=== PATIENT | male | born 1960 | race Caucasian/White ===

== ENCOUNTER 2023-05-10 07:18 | Outpatient (OUT) | payer OTHER, SELFPAY ==
[2023-05-10 07:48] LABS: Basophils Percent Auto 0.4 % (0.2-2.0); Eosinophils Absolute Auto 0.1 10^3/uL (0.0-0.7); Eosinophils Percent Auto 1.4 % (0.9-7.0); Hematocrit 43.7 % (42.0-54.0); Hemoglobin 14.3 g/dL (14.0-18.0); Immature Granulocytes Abs Auto 0.01 10^3/uL (0.00-0.03); Immature Granulocytes Pct Auto 0.2 % (0.0-0.5); Lymphocytes Absolute Auto 1.7 10^3/uL (1.2-3.8); Lymphocytes Percent Auto 33.4 % (20.5-60.0); Mean Corpuscular HGB Conc 32.7 g/dL (29.9-35.2); Mean Corpuscular Hemoglobin 30.4 pg (25.9-34.0); Monocytes Absolute Auto 0.5 10^3/uL (0.3-0.8); Monocytes Percent Auto 9.2 % (1.7-12.0); Neutrophils Absolute Auto 2.8 10^3/uL (1.4-6.5); Neutrophils Percent Auto 55.4 % (43.0-75.0); Platelet Count 233 10^3/uL (150-450); Red Cell Distribution Width 12.1 % (11.0-15.0); White Blood Count 5.1 10^3/uL (4.0-11.0)
[2023-05-10 08:11] LABS: Alanine Aminotransferase 35 U/L (16-63); Albumin Globulin Ratio 1.1; Albumin Level 3.6 g/dL (3.4-5.0); Alkaline Phosphatase 65 U/L (46-116); Aspartate Amino Transferase 13 U/L (15-37); BUN Creatinine Ratio 18.1; Bilirubin Total 0.5 mg/dL (0.2-1.0); Calcium 8.9 mg/dL (8.5-10.1); Carbon Dioxide 30.1 mmol/L (21.0-32.0); Chloride 104 mmol/L (98-107); Cholesterol 168 mg/dL (<=200); Estimated GFR (African America >60 (>=60); Estimated GFR (Non-African Ame >60 (>=60); Globulin 3.4 g/dL; Glucose 89 mg/dL (74-106); HDL Cholesterol 56 mg/dL (40-60); Potassium 4.1 mmol/L (3.5-5.1); Sodium 141 mmol/L (136-145); Triglycerides 156 mg/dL (<=150); VLDL CHOLESTEROL 31.2 mg/dL
[2023-05-10 09:11] LABS: Prostate Specific Antigen Scrn 2.76 ng/mL (<=4.00)
== END 2023-05-10 07:19 | disposition home or self-care (01) ==
LOC: LAB 07:27
PROVIDERS: PCP Internal Medicine; Visit Provider Internal Medicine
DX: Z00.00 Encounter for general adult medical examination without abnormal findings (principal)
CPT/HCPCS: 36415; 80053; 80061; 85025; G0103

== ENCOUNTER 2025-03-22 07:23 | Outpatient (OUT) | payer OTHER, SELFPAY ==
--- OUTSIDE RECORDS SUMMARY | 2025-03-19 07:19 | XMS_ITS | Continuity of Care Document ---
Author Organization [facility] Address [address] [place] [address] Phone Care Team Providers Care Cardroom Worker Name Role Phone Erasmo Griffin DO Primary Care Provider Erasmo Griffin DO Attending Provider Care Teams Patient Care Team Team Status: Active Member Role/Relationship Status Dates Erasmo Griffin DO Primary Care Provider Active Patient Care Team Team Status: Inactive Member Role/Relationship Status Dates Erasmo Griffin DO Primary Care Provider Active Start: March 19, 2025 End: March 19felix Griffin DOAttending ProviderActiveStart: March 19, 2025 End: March 19, 2025 Chief Complaint and Reason for Visit Chief Complaint Admit Date Wellness March 19, 2025 1 1:15am Reason for Visit Admit Date Hypercholesterolemia March 19, 2025 11:15am Hypertension March 19, 2025 1 1:15am Lumbar spondylosis March 19, 2025 1 1:15am Screening PSA (prostate specific antigen ) March 19, 2025 11:15am Wellness examination March 19, 2025 11:15am Benign paroxysmal positional vertigo of left ear March 19, 2025 11:15am Allergies, Adverse Reactions, Alerts Allergen Type Severity Reaction Last Updated Verified Status No Known Allergies Allergy Unknown March 19, 2025 11:46amYesActive Social History Smoking Status Status Start Date End Date Date of Observa tion Never smoked tobacco (finding) March 19, 2025 12:16pm Observation Status Observation Response Date of Response Legal Sex Male (finding) Sex Assigned At BirthMaleJuly 1960 Family History Relationship Condition Age at Onset Recorded Date/T lori sister Heart disease Unknown brotherHeart diseaseUnknownfatherMalignant neoplasmUnknown Problems Active Problems Problem Diagnosis/Recorded Date Onset Date Stat us Screening PSA (prostate specific antigen) February 7:14am Unknown Active Trigger finger, left middle finger August 30, 2023 12 :59pm Unknown Active Wellness examination March 16, 2025 7:14am Unknown Active Hypercholesterolemia December 21, 2024 7:25am Unknown Active Bilateral carpal tunnel syndrome August 30, 2023 12:5 9pm Unknown Active Hypertension December 21, 2024 7:25am Unknown Acti ve Lumbar spondylosis September 02, 2023 2:57pm Unknown Active Inactive/Resolved Problems Problem Diagnosis/Recorded Date Onset Date Stat us Dizziness July 31, 2024 12:27pm Unknown Res olved Vertigo July 31, 2024 12:27pm Unknown Res olved Medications Medication Status Dose Units Route Directions Qty Days Refills S tart Date Stop Date End Date Reason(s) Instructions Adherence Meloxicam 15 mg tablet Active 0 .ROUTE.SWFHGGL928Qhni 2023 6:55amTAKE 1 TABLET BY MOUTH EVERY DAY FOR 30 DAYSComplies with drug therapyAtorvastatin 20 mg bkunpzQaemkjyztbjm74HBUWBhgoa51 2023 8:43amAugu2024 7:26amhyperlipidemiaLisinopril 20 mg uxxtwdIddodafvsxfh11WLOUFrofpErarnb 2023 12:00amA2023 8:55am Lisinopril 20 mg pcgcemDyetjuevyilq38RRTVHurec23753Kndvjp 2nd, 2024 8:55am April 14, 2024 2:03pmLisinopril 20 mg zuxlxqWtmmvhayboij47PVVZAwqky618 April 14, 2024 2:02pmAugust 2024 7:26amValacyclovir 500 mg tablet Rceljs985WVIYTbzwi119Inefqndi 6th, 2024 1:00amComplies with drug therapy Lisinopril 20 mg tabletActive0.ROUTE.ZVTMYNN085Kwwzbj2024 7:18amTAKE 1 TABLET DAILYComplies with drug therapyAtorvastatin 20 mg tabletActive0.ROUTE .WZVFTPI688Mqmfzp 2024 7:26amTAKE 1 TABLET DAILY FOR HYPERLIPIDEMIAComplies with drug therapyMeloxicam 15 mg BrkbcvXguuymauekvk29HKYLPaknq as needed for PainApril 2022 12:00amJuly 2023 6:55amLisinopril 5 mg tablet DiscontinuedMGApril 2022 12:00amApril 2023 3:00pmLisinopril 5 mg lmoakhKkfjagsbvgaj66ISKDCxrgt 2023 3:00pmAugust 2023 8:49amMeclizine 25 mg sdwelnUsixzs68UGIQYpkwu times daily as needed for yeasyirjw413Pkbkm 2024 12:00amComplies with drug therapyMultivitamin (Multiple Vitamins) Tablet Vmgpgdmwsczu2KLDHIFgdfwCmkdt 2018 1:00amApril 2022 7:21amAtorvastatin 20 mg nhokxkQgxwjpkvotcy77QNOSYgoohLjeyz 2018 1:00amAugust 2023 8:46am hyperlipidemiaDicyclomine 10 mg KonernsCsliit54ASBQUmgzt as needed for [facility]able [facility] 2018 1:00amComplies with drug therapy Immunizations Immunization Event Date Not Given Reason Dose Number [employer] Lot Number Reason(s) Given Vaccine Information Statement (VIS) Detail Administration Location influenza, unspecified formulation March [facility] 2015Tetanus, Diphtheria adult, 5 Lf pres free absAsc[facility] 2016 Vital Signs Vital Reading Result Reference Range Collection Date/Time Height 70 [in_i] March 19, 2025 11:67vwXfkaid33.61 kgAsc[facility] 2024 11:40amBody Vkwegdivwcc78.4 [degF]97.6-99.0[facility] 2024 11:40amHeart Rate86 /osc08-534 March 19, 2025 11:40amRespiratory rate16 /hvr77-46Cadszwx 2024 11:40am Oxygen saturation by Pulse zfzcmvke36 %95-100[facility] 2024 11:40amBP Uluaaddy436 mm[Hg]100-140[facility] 2024 11:40amBP Fhmmjavrs71 mm[Hg]60-100 March 19, 2025 11:40amBMI (Body Mass Index)30.5 kg/r8Udntxra 2024 11:40am Advance Directives Advance Directive Response Recorded Date/ Time Advance Directives No March 19, 2025 12:16pm Insurance Providers Guarantor Nahum Goldsmith Address [address] [place] [address]Lbhwpnb Info.Home Phone: Payer Group Member ID Coverage Type Subscriber Relationship to Subscriber Effective Date Expiration Date MMO self employed Id: [id number] Rupal Id: [id number] [address] [place] [address] Home Phone: Email: [email or web address] Encounters Encounter Location(s) Arrival/Admit Date Discharge/Departure Date Discharge/Departure Disposition Provider(s) Departed Physician/ Provider Office Visit -[facility] March 19, 2025 11:15am March 19, 2025 12:17pm Discharged to home care or self care (routine discharge) Erasmo Griffin , DO Recent Diagnosis Onset Date Admit Date Hypercholesterolemia Unknown February 11:15am Hypertension Unknown March 19 11:15am Lumbar spondylosis Unknown March 19, 2025 11:15am Screening PSA (prostate specific antigen) Unknow n March 19, 2025 11:15am Wellness examination Unknown February 11:15am Benign paroxysmal positional vertigo of left ear Unknown March 19, 2025 11:15am Assessments Diagnosis Onset Date Resolution Status Admit Date Hypercholesterolemia acuteOctober 2024 11:15amHypertensionacuteOctober 2024 11:15amLumbar spondylosisacuteOctober 2024 11:15amScreening PSA (prostate specific antigen)acuteOctober 2024 11:15amWellness examinationacuteOctober 2024 11:15amBenign paroxysmal positional vertigo of left earnoneactiveOctober 2024 11:15am Plan of Treatment Author Erasmo Griffin [facility] HospitalAuthoredOctober 2024 12:11pmI have instructed this patient on a low fat, high fiber diet and exercise. I have discussed the primary and secondary prevention benefits attributed to lowering LDL cholesterol. I have also discussed the medical treatment of elevated cholesterol, which is based on the 10 year ASCVD risk. Continue Atorvastatin without interruption I have instructed this patient to consume a healthy, low-fat, low-salt diet. I have also encouraged them to continue exercise with weight loss to achieve/maintain a BMI < 30. I have instructed this patient on the correct procedure for obtaining home BP measurements:? - rest for 5 minutes w/o talking. - positioned w/ feet on floor and arms supported. - average best 2/3 readings w/ goal < 135/85. Update office w/ home readings in 2 weeks. Continue Lisinopril without interruption I have instructed this patient on the recommended lifestyle changes, which includes a low fat, high fiber diet along with a regular exercise routine. I have also reviewed the recommended age-appropriate preventive testing for this patient. I have also reviewed the recommended vaccines for their age and risk factors. I have recommended yearly PSA testing. I have informed him that the PSA can be elevated w/ cancer, infection and enlarged prostates. I have explained to the patient, that If his PSA is elevated, while there are many causes, referral will be recommended to r/o cancer. He would be referred to Urology, who may recommend an MRI, TRUS/bx or possibly continued monitoring. He is agreeable to this plan of action PSA: 1.96 - 04/2021, 2.07 - 04/2022, 2.76 - 04/2023 I have instructed this patient to avoid bending, twisting or lifting. I have also instructed on use of intermittent heat and ice as needed. They may schedule a massage or gentle manipulation. I instructed them on the safe use of Tylenol, Lidocaine and stretching exercises. I informed them of alternative modes of treatment for severe pain, which may include referral to physical therapy or pain management. Instructed to push fluid and avoid abrupt changes in head position. Instructed on modified mary maneuvers Future Tests Future scheduled test information is unavailable Pending Tests Test Name Ordered Date Scheduled Date Comprehensive Metabolic Panel March 19, 2025 12:11pm Future Visits Future appointment information is unavailable Future Procedures Procedure Name Ordered Date Scheduled Date Complete Blood Count Auto Diff March 19 12:11pm Lipid PanelOct2024 12:11pmPSA Screen (Yearly Only)March 19, 2025 12:11pm Future Medications Future medication information is unavailable Patient Instructions Patient instructions are unavailable
--- OUTSIDE RECORDS SUMMARY | 2025-03-22 07:28 | XMS_ITS | Clinical Summary ---
Author Organization [facility] Address [address] [place] [address] Care Team Providers Care Tankroom Tender Name Role Phone Unavailable Primary Care Provider Unavailabl e Social History Tobacco UseTypesPacks/DayYears UsedDateSmoking Tobacco: Never AssessedSex and Gender InformationValueDate RecordedSex Assigned at BirthNot on fileLegal Sex Male08/01/2022 8:25 PM EDTGender IdentityNot on fileSexual OrientationNot on file Last Filed Vital Signs Vital SignReadingTime TakenCommentsBlood Zgdaekdw566/7308 12:00 PM EDT Pulse--Temperature--Respiratory Rate--Oxygen Saturation--Inhaled Oxygen Concentration--Krsbzg42 kg (194 lb)11/11/2018 12:00 PM OBAJfabdh593.8 cm (5' 10 )11/11/2018 12:00 PM EDTBody Mass Index27.8411/11/2018 12:00 PM EDT Plan of Treatment Not on file Insurance * Guarantor: Nahum GoldsmithAccount TypeRelation to PatientDate of BirthPhone Billing AddressPersonal/TkdrnkNetv39/20/1961 [address] [place] [address]
--- OUTSIDE RECORDS SUMMARY | 2025-03-22 07:28 | XMS_ITS | CCD ---
Author Organization [facility] Care Team Providers Care Extrusion Operator Name Role Phone Timo Adams Unavailable Baljinder Chavez Unavailable DR ERASMO GRIFFIN Admitting Unavailable ENRIQUE, DR CRAWFORD Attending Unavailable ENRIQUE, DR CRAFWORD Primary Care Unavailable ENRIQUE, DR CRAWFORD Consulting Unavailable DO Erasmo Griffin Primary Care Provider MD Baljinder Chavez Attending Provider [phone] Erasmo Griffin Unavailable Erasmo Griffin DO Primary Care Provider Barry Logan MD Emergency Provider Barry Logan Attending Unavailable Barry Logan Admitting Unavailable Erasmo Griffin Primary Care Unavailable Erasmo Griffin DO Primary Care Provider Erasmo Griffin DO Attending Provider [phone] Allergies Allergy ClassificationReported Allergen(s)Allergy TypeDate of OnsetReaction(s) Facility (1 source)patient allergy list reviewed by nurse or physiciaPropensity to adverse eduqtmlub58-24-2634Xltxjqw:[employer] Other Medications Current Medications MedicationDrug Class(es)DatesSig (Normalized)Sig (Original)atorvastatin 20 mg oral tablet (16 sources)HMG-CoA Reductase InhibitorStart: 62-23-8180Ldrlrgqykykg 20 mg tablet Active 0 .ROUTE .COMPLEX 90 December 21, 2024 7:26am TAKE 1 TABLET DAILY FOR HYPERLIPIDEMIA Complies with drug therapyStart: 07-23-2018 End: 09-15-8888magg 1 tablet by mouth once dailyAtorvastatin 20 mg tablet Discontinued 20 MG PO Daily 90 90 3 December 20, 2023 8:43am December 21, 2024 7:26am hyperlipidemiaDiclofenac (10 sources)Nonsteroidal Anti-inflammatory DrugVoltaren 1 % as directed Externally PRN ActiveVoltaren 1 % as directed Externally PRN Activedicyclomine hydrochloride 10 mg oral capsule (8 sources)AnticholinergicStart: 65-67-3666cdtx 1 capsule by mouth once daily as neededDicyclomine 10 mg Capsule Active 10 MG PO Daily as needed for irritable bowel July 23, 2018 1:00am Complies with drug therapyDicyclomine HCl prn Activedoxycycline hyclate 100 mg oral capsule (5 sources)Tetracycline-class Drugtake 1 capsule by mouth every twenty-four hoursDoxycycline Hyclate 100 MG 1 capsule Orally Once a day PRN Activelisinopril 20 mg oral tablet (20 sources)Angiotensin Converting Enzyme InhibitorStart: 02-13-6150Sayokgxbzl 20 mg tablet Active 0 .ROUTE .COMPLEX 90 December 21, 2024 7:18am TAKE 1 TABLET DAILY Complies with drug therapyStart: 12-20-2023 End: 83-03-7618pecj 1 tablet by mouth once dailyLisinopril 20 mg tablet Discontinued 20 MG PO Daily 7 7 0 April 14, 2024 2:02pm December 21, 2024 7:26amStart: 09-02-2023 End: 38-25-0344Ibwnehecru 5 mg tablet Discontinued 20 MG PO September 02, 2023 3:00pm December 20, 2023 8:49amStart: 08-31-2022 End: 99-50-7751Cecuteuiya 5 mg tablet Discontinued MG August 31, 2022 12:00am September 02, 2023 3:00pmStart: 79-59-2483Thjavzknee Active MG TABLET August 31, 2022 12:00amtake 1 tablet by mouth every twenty-four hoursLisinopril 20 MG 1 tablet Orally Once a day for 90 days Activetake 1 tablet by mouth every twenty- four hoursLisinopril 30 MG 1 tablet Orally Once a day ActiveLisinopril 10 MG TAKE 1 TABLET DAILY Orally Once a day Activemeclizine hydrochloride 25 mg oral tablet (2 sources)AntiemeticStart: 53-36-4532clwf 1 tablet by mouth three times daily as needed for dizzinessMeclizine 25 mg tablet Active 25 MG PO Three times daily as needed for dizziness 30 0 July 31, 2024 12:00am Complies with drug therapy meloxicam 15 mg oral tablet (15 sources)Nonsteroidal Anti-inflammatory DrugStart: 08-20-5226jjji 1 tablet by mouth once dailyMeloxicam 15 mg tablet Active 0 .ROUTE .COMPLEX 30 December 09, 2023 6:55am TAKE 1 TABLET BY MOUTH EVERY DAY FOR 30 DAYS Complies with drug therapyStart: 09-15-2021 End: 87-10-3830qphn 1 tablet by mouth once daily as needed for painMeloxicam 15 mg Tablet Discontinued 15 MG PO Daily as needed for Pain August 31, 2022 12:00am 2023 6:55ammethylPREDNISolone 4 mg oral tablet (2 sources)CorticosteroidStart: 20-02-8135Tmwpll (Toñito) 4 MG as directed Orally as directed for 5 days Jul, ActivevalACYclovir 500 mg oral tablet (8 sources)Herpesvirus Nucleoside Analog DNA Polymerase Inhibitor, Herpes Simplex Virus Nucleoside Analog DNA Polymerase Inhibitor, Herpes Zoster Virus Nucleoside Analog DNA Polymerase InhibitorStart: 21-12-6233srhg 1 tablet by mouth once dailyValacyclovir 500 mg tablet Active 500 MG PO Daily 90 April 24, 2024 1:00am Complies with drugtherapyvalACYclovir HCl 500 mg TAKE 1 TABLET DAILY Orally Once a day for 90 days prn Active Completed/Discontinued Medications MedicationDrug Class(es)DatesSig (Normalized)Sig (Original)Multivitamin (Multiple Vitamins) Tablet (3 sources)Start: 07-23-2018 End: 02-24-5858yqts 1 tablet by mouth once dailyMultivitamin (Multiple Vitamins) Tablet Discontinued 1 TAB PO Daily July 23, 2018 1:00am August 31, 2022 7:21amtriamcinolone acetonide 40 mg/ml injectable suspension (20 sources)CorticosteroidStart: 50-11-8334Shetunc-40 Jul, 20 mgStart: 95-02-8364Kgmexsu-40 Jul, 40 mgStart: 89-17-1265Zsahilu -40 mg Apr, 20 mgStart: 99-24-7637Riuuidy -40 mg Jan, 20 mg Problems Active Problems Problem ClassificationProblemDateDocumented DateEpisodic/ChronicConditions associated with dizziness or vertigo (6 sources)Dizziness; Translations: [Dizziness and giddiness]Onset: 07-31-2024 52-61-1992JnwbqndvCnvdnjncp of lipid metabolism (9 sources)Familial hypercholesterolemia; Translations: [Familial hypercholesterolemia]Onset: 88-43-6165DeucuqhTvpasujkn hypertension (9 sources)Essential hypertension; Translations: [Essential (primary) hypertension]ChronicHyperplasia of prostate (2 sources)Benign prostatic hypertrophy with outflow obstruction; Translations: [Hypertrophy (benign) of prostate with urinary obstruction and other lower urinary tract symptoms [LUTS]]Onset: 47-06-2118RqhtbmxHobvgshjqnpdnk (1 source)Degenerative joint disease of hand; Translations: [Osteoarthrosis, unspecified whether generalized or localized, hand]ChronicOther connective tissue disease (3 sources)Bicipital tendinitis, right shoulderOnset: 09-15-2021 Resolved: 11-32-2862WbwgiqqfOlvzr connective tissue disease (3 sources)Trigger finger, left middle fingerOnset: 09-15-2021 Resolved: 84-19-5795ZpabariqAlhhd connective tissue disease (2 sources)Acquired trigger finger; Translations: [Trigger finger, unspecified finger]EpisodicOther connective tissue disease (2 sources)Triggering of digit; Translations: [Trigger finger, left middle finger]57-30-4339AvitooocPhflu nervous system disorders (10 sources)Carpal tunnel syndrome of right wrist; Translations: [Carpal tunnel syndrome, right upper limb]ChronicOther nervous system disorders (10 sources)Carpal tunnel syndrome of left wrist; Translations: [Carpal tunnel syndrome, left upper limb]ChronicOther nervous system disorders (2 sources)Carpal tunnel syndrome, left upper limbChronicOther nervous system disorders (2 sources)Carpal tunnel syndrome, right upper limbChronicOther nervous system disorders (2 sources)Carpal tunnel syndrome; Translations: [Carpal tunnel syndrome, right upper limb]06-36-5338UlfyegxYcvue nervous system disorders (1 source)Bilateral carpal tunnel syndrome; Translations: [Carpal tunnel syndrome, bilateral upper limbs]55-44-0344TeldnykGyfei non-traumatic joint disorders (3 sources)Pain in right shoulderOnset: 09-15-2021 Resolved: 61-47-8977ErxlvdhtXylau non-traumatic joint disorders (1 source)Pain in right hip joint; Translations: [Pain in right hip]Episodic Other nutritional; endocrine; and metabolic disorders (1 source)Obesity; Translations: [Obesity, unspecified]Onset: 65-54-1744Asydzse Other nutritional; endocrine; and metabolic disorders (1 source)OverweightEpisodicOther screening for suspected conditions (not mental disorders or infectious disease) (5 sources)Encounter for screening for malignant neoplasm of prostate; Translations: [Encounter for screening for diseases of the blood and blood- forming organs and certain disorders involving the immune mechanism]Onset: 50-54-1118GpvhsskmUlquzqqe codes; unclassified (1 source)Family history of ischemic heart disease; Translations: [Family history of ischemic heart disease and other diseases of the circulatory system] EpisodicSpondylosis; intervertebral disc disorders; other back problems (7 sources)Lumbar spondylosis; Translations: [Spondylosis without myelopathy or radiculopathy, lumbar region]ChronicSpondylosis; intervertebral disc disorders; other back problems (1 source)Low back pain; Translations: [Low back pain, unspecified]Episodic Sprains and strains (3 sources)Sprain of shoulder and upper arm; Translations: [Strain of unspecified muscle, fascia and tendon atshoulder and upper arm level, right arm, initial encounter]Onset: 44-07-5180HvkfhtfySvebvnhoimks (1 source)Long-term current use of drug therapy; Translations: [Long-term (current) use of other medications]Onset: 30-79-6663Natvr infection (1 source)Herpesviral vesicular dermatitis; Translations: [Herpesviral vesicular dermatitis]Episodic Past or Other Problems Problem ClassificationProblemDateDocumented DateEpisodic/ChronicJoint disorders and dislocations; trauma-related (1 source)Dislocations, sprains and strains involving multiple regions of lower limb(s); Translations: [Sprain and strain of unspecified site of knee and leg] Onset: 71-89-7148DqetjkpoAcyvf non-traumatic joint disorders (1 source)Arthralgia of the pelvic region and thigh; Translations: [Pain in joint, pelvic region and thigh]Onset: 15-40-1641ZpucwemzGujeu nutritional; endocrine; and metabolic disorders (1 source)Overweight; Translations: [Overweight]Onset: 32-23-0193Mpzklyff Results Test NameValueInterpretationReference RangeFacilityAlanine aminotransferase [Enzymatic activity/volume] in Serum or PlasmaOrdered By: Barry Logan on 69-07-6717RQN [Catalytic activity/Vol]Alanine aminotransferase [Enzymatic activity/volume] in Serum or Plasma7-52[facility] HospitalAlbumin [Mass/volume] in Serum or Plasma by Bromocresol green (BCG) dye binding metho Ordered By: Barry Logan on 91-51-0014Xgqzoor BCG dye [Mass/Vol]Albumin [Mass/volume] in Serum or Plasma by Bromocresol green (BCG) dye binding metho 3.5-5.7FKettering Health Washington TownshipAlkaline phosphatase [Enzymatic activity/volume] in Serum or PlasmaOrdered By: Barry Logan on 41-79-2510GXA [Catalytic activity/Vol]Alkaline phosphatase [Enzymatic activity/volume] in Serum or Ojbidw60-688GwjtdqzruTrihealth Bethesda Butler HospitalAspartate aminotransferase [Enzymatic activity/volume] in Serum or PlasmaOrdered By: Barry Logan on 02-17-0444HIX [Catalytic activity/Vol]Aspartate aminotransferase [Enzymatic activity/volume] in Serum or Qqqqqr38-70PicbhkgwuTrihealth Bethesda Butler Hospital Basophils Auto (Bld) [#/Vol]Ordered By: Barry Logan on 54-12-2278Otgpdwvip (Bld) [#/Vol]Automated basophil count0.0-0.2FKettering Health Washington Township Basophils/100 WBC Auto (Bld)Ordered By: Barry Logan on 15-79-6426Yamijkmcn/100 WBC (Bld)Automated basophil %.[facility] Butler HospitalBilirubin.total [Mass/volume] in Serum or PlasmaOrdered By: Barry Logan on 04-87-5423Xfzhmuchs [Mass/Vol]Bilirubin.total [Mass/volume] in Serum or Plasma0.3-1.0[facility] Butler HospitalCT head/brain wo conon 51-74-6732OJ head/brain wo con [facility] [place] [address] CT Scan Report Signed Patient: Nahum Goldsmith MR#: [id number] 631 : 1960 Acct:[id number] Age/Sex: 63 / M ADM Date: 07/31/24 Loc: ER Room: Type: [facility] ER Attending Dr: Copies to: Barry Logan MD Ordering Provider: Barry Logan MD Date of Service: 07/31/24 CT/CT head/brain wo con: lightheadedness/dizziness CT BRAIN WITHOUT CONTRAST: CLINICAL HISTORY: Dizziness for 4 days. COMPARISON: None TECHNIQUE: Contiguous axial unenhanced images were obtained through the brain. This CT exam was performed using one or more following dose reduction techniques: Automated exposure control, adjustment of the mA and/or kV according to patient size, or use of iterative reconstruction technique. FINDINGS: There is no evidence of midline shift, intra or extra-axial fluid collection, hemorrhage or CT evidence of stroke. Posterior fossa appears unremarkable. Visualized intraorbital contents demonstrate no acute findings. Visualized paranasal sinuses are clear. The surrounding soft tissues are normal. CT/CT head/brain wo con IMPRESSION: NO ACUTE INTRACRANIAL ABNORMALITY. Impression dictated by: Jerome Camacho Jr., D.ORosario07/31/2024 12:15 PM Dictation Location: [place] [address] Transcribed By: [facility] 07/31/24 121 Dictated By: Jerome Camacho Jr, DO 07/31/24 121 Signed By: 07/31/24 1215NoBetsy Johnson Regional Hospital Physician GroupCalcium [Mass/volume] in Serum or PlasmaOrdered By: Barry Logan on 92-96-8338Qxvgpvh [Mass/Vol]Calcium [Mass/volume] in Serum or Plasma8.6-10.3FKettering Health Washington TownshipCarbon dioxide, total [Moles/volume] in Serum or PlasmaOrdered By: Barry Logan on 34-23-2292VN7 [Moles/Vol]Carbon dioxide, total [Moles/volume] in Serum or Plasma 21.0-31.0[facility] HospitalChloride [Moles/volume] in Serum or PlasmaOrdered By: Barry Logan on 01-65-7711Snrluryl [Moles/Vol]Chloride [Moles/volume] in Serum or Mjbcps23-157MeoegzxwxTrihealth Bethesda Butler HospitalComplete Blood Count Auto Diffon 66-00-4728Mmqswkllo (Bld) [#/Vol]0.0 10*3/uLNormal 0.0-0.2The [facility] Physician GroupComment on above:Result Comment: PERFORMED BY: [place] [address] PATHOLOGIST [employer] ASIYA GOODSON M.D.Performed By: #### CMP, CK, HS TROP, CBC #### [place] [address] USABasophils/100 WBC (Bld)0.3 %Normal.The [facility] Physician GroupComment on above:Performed By: #### CMP, CK, HS TROP, CBC #### [place] [address] USAEosinophils (Bld) [#/Vol]0.0 10*3/uLNormal0.0-0.45The [facility] Physician GroupComment on above:Performed By: #### CMP, CK, HS TROP, CBC #### [place] [address] USAEosinophils/100 WBC (Bld)0.1 %Normal.The [facility] Physician GroupComment on above:Performed By: #### CMP, CK, HS TROP, CBC #### [place] [address] USAErythrocyte distribution width (RBC) [Ratio]13.4 %Normal 12.0-14.8The [facility] Physician GroupComment on above:Performed By: #### CMP, CK, HS TROP, CBC #### [place] [address] USAHematocrit (Bld) [Volume fraction]42.2 %Uskkjj74.8-50.0The [facility] Physician GroupComment on above:Performed By: #### CMP, CK, HS TROP, CBC #### [place] [address] USAHemoglobin (Bld) [Mass/Vol]14.4 g/rAJvjfra13.0-17.0The [facility] Physician GroupComment on above:Performed By: #### CMP, CK, HS TROP, CBC #### [place] [address] USALymphocytes (Bld) [#/Vol]0.9 10*3/uLLow1.00-4.8The [facility] Physician GroupComment on above:Performed By: #### CMP, CK, HS TROP, CBC #### [place] [address] USALymphocytes/100 WBC (Bld)10.4 %Normal.The [facility] Physician GroupComment on above:Performed By: #### CMP, CK, HS TROP, CBC #### [address] (RBC) [Entitic mass]30.8 omCjylhj12.5-35.2The [facility] Physician GroupComment on above:Performed By: #### CMP, CK, HS TROP, CBC #### [address] (RBC) [Entitic vol]90.5 aQImdlll78.5-101The [facility] Physician GroupComment on above:Performed By: #### CMP, CK, HS TROP, CBC #### [place] [address] USAMean Corpuscular HGB Conc34.0 g/vKZcayol24.5-35.6The [facility] Physician GroupComment on above:Performed By: #### CMP, CK, HS TROP, CBC #### [place] [address] USAMonocytes (Bld) [#/Vol]0.5 10*3/uLNormal0.0-0.8The [facility] Physician GroupComment on above:Performed By: #### CMP, CK, HS TROP, CBC #### [place] [address] USAMonocytes/100 WBC (Bld)19.06 %Normal0.00-20.00The [facility] Physician GroupComment on above:Performed By: #### CMP, CK, HS TROP, CBC #### [place] [address] USAMonocytes/100 WBC (Bld)5.4 %Normal.The [facility] Physician GroupComment on above:Performed By: #### CMP, CK, HS TROP, CBC #### [facility] [address] [place] [address] USANeutrophils (Bld) [#/Vol]7.1 10*3/uLNormal1.8-7.7The [facility] Physician GroupComment on above:Performed By: #### CMP, CK, HS TROP, CBC #### [facility] [address] [place] [address] USANeutrophils/100 WBC (Bld)83.8 %Normal.The [facility] Physician GroupComment on above:Performed By: #### CMP, CK, HS TROP, CBC #### [facility] [address] [place] [address] USANRBC%0.0 /100{WBC}Normal0-0.5The [facility] Physician Group Comment on above:Performed By: #### CMP, CK, HS TROP, CBC #### [facility] [address] [place] [address] USAPlatelet mean volume (Bld) [Entitic vol]7.9 fLNormal 6.6-10.1The [facility] Physician GroupComment on above:Performed By: #### CMP, CK, HS TROP, CBC #### [place] [address] USAPlatelets (Bld) [#/Vol]229 10*3/nKXbrkqj893-209Bmq [facility] Physician GroupComment on above:Performed By: #### CMP, CK, HS TROP, CBC #### [facility] [address] [place] [address] USARBC (Bld) [#/Vol]4.66 10*6/uLNormal3.90-5.60The [facility] Physician GroupComment on above:Performed By: #### CMP, CK, HS TROP, CBC #### [facility] [address] [place] [address] USAWBC (Bld) [#/Vol]8.5 10*3/uLNormal4.1-10.5The [facility] Physician GroupComment on above:Performed By: #### CMP, CK, HS TROP, CBC #### [facility] [address] [place] [address] USAComprehensive Metabolic Panelon 02-80-9543Tgfzfcc [Mass/Vol]4.4 g/dLNormal3.5-5.7The [facility] Physician GroupComment on above: Performed By: #### CMP, CK, HS TROP, CBC #### [facility] [address] [place] [address] USAAlbumin/Globulin [Mass ratio]1.6 {ratio}NormalThe [facility] Physician GroupComment on above:Performed By: #### CMP, CK, HS TROP, CBC #### [place] [address] USAALP [Catalytic activity/Vol]62 U/QWbkfki28-658Cuw [facility] Physician GroupComment on above:Performed By: #### CMP, CK, HS TROP, CBC #### [place] [address] USAALT [Catalytic activity/Vol]25 U/LNormal7-52The [facility] Physician GroupComment on above:Performed By: #### CMP, CK, HS TROP, CBC #### [place] [address] USAAnion gap [Moles/Vol]10.2 mmol/LNormal6.0-15.0The [facility] Physician GroupComment on above:Performed By: #### CMP, CK, HS TROP, CBC #### [place] [address] USAAST [Catalytic activity/Vol]19 U/TGcqpup17-29Gtb [facility] Physician GroupComment on above:Performed By: #### CMP, CK, HS TROP, CBC #### [place] [address] USABilirubin [Mass/Vol]0.8 mg/dLNormal0.3-1.0The [facility] Physician GroupComment on above:Performed By: #### CMP, CK, HS TROP, CBC #### [place] [address] USACalcium [Mass/Vol]9.0 mg/dLNormal8.6-10.3The [facility] Physician GroupComment on above:Performed By: #### CMP, CK, HS TROP, CBC #### [facility] [address] [place] [address] USAChloride [Moles/Vol]104 mmol/OSxrpce00-740Zqs [facility] Physician GroupComment on above:Performed By: #### CMP, CK, HS TROP, CBC #### [facility] [address] [place] [address] USACO2 [Moles/Vol]26.2 mmol/CIivtsy37.0-31.0The [facility] Physician GroupComment on above:Performed By: #### CMP, CK, HS TROP, CBC #### [place] [address] USACreatinine [Mass/Vol]0.97 mg/dLNormal0.70-1.30The [facility] Physician GroupComment on above:Performed By: #### CMP, CK, HS TROP, CBC #### [place] [address] USACreatinine Clr Calc Imamikvt81.76NormKindred Hospital Bay Area-St. Petersburg Physician GroupComment on above:Result Comment: PERFORMED BY: [place] [address] PATHOLOGIST [employer] ASIYA GOODSON M.D.Performed By: #### CMP, CK, HS TROP, CBC #### [place] [address] USAGFR/1.73 sq M.predicted MDRD (S/P/Bld) [Vol rate/Area] mL/min/{1.73_m2}NormalThe [facility] Physician GroupComment on above:Performed By: #### CMP, CK, HS TROP, CBC #### [place] [address] USAGlobulin (S) [Mass/Vol]2.7 g/dLNoBetsy Johnson Regional Hospital Physician GroupComment on above:Performed By: #### CMP, CK, HS TROP, CBC #### [facility] [address] [place] [address] USAGlucose [Mass/Vol]102 mg/wKAkrh44-884Ida [facility] Physician GroupComment on above:Result Comment: Random Glucose Reference Range is dependent on time and content of last meal. Glucose of more than 200 mg/dL in a nonstressed, ambulatory subject supports the diagnosis of Diabetes Mellitus. ADA recommended reference rangePerformed By: #### CMP, CK, HS TROP, CBC #### [facility] [address] [place] [address] USAPotassium [Moles/Vol]4.4 mmol/LNormal3.5-5.1The [facility] Physician GroupComment on above:Performed By: #### CMP, CK, HS TROP, CBC #### [facility] [address] [place] [address] USAProtein [Mass/Vol]7.1 g/dLNormal6.4-8.9The [facility] Physician GroupComment on above:Performed By: #### CMP, CK, HS TROP, CBC #### [facility] [address] [place] [address] USASodium [Moles/Vol]136 mmol/GAowftv849-627Vsw [facility] Physician GroupComment on above:Performed By: #### CMP, CK, HS TROP, CBC #### [facility] [address] [place] [address] USAUrea nitrogen [Mass/Vol]19 mg/dLNormal7-25The [facility] Physician GroupComment on above:Performed By: #### CMP, CK, HS TROP, CBC #### [facility] [address] [place] [id number] USACreatine Kinaseon 82-61-5539UK [Catalytic activity/Vol]190 U/ZPbcymf41-497Zpl [facility] Physician GroupComment on above:Performed By: #### CMP, CK, HS TROP, CBC #### [facility] [address] [place] [address] USACreatine kinase [Enzymatic activity/volume] in Serum or PlasmaOrdered By: Barry Logan on 70-52-9457KH [Catalytic activity/Vol]Creatine kinase [Enzymatic activity/volume] in Serum or Fexbvd33-441FludidywrTrihealth Bethesda Butler HospitalCreatinine [Mass/volume] in Serum or PlasmaOrdered By: Barry Logan on 90-24-8387Sfohmdajae [Mass/Vol]Creatinine [Mass/volume] in Serum or Plasma 0.70-1.30[facility] Butler HospitalECG 12 lead ECGon 61-80-7521MHW 12 lead ECGCOMMUNITY [facility] [place] [address] Electrocardiograph Report Signed Patient: Nahum Goldsmith MR#: [id number] 631 : 1960 Acct:[id number] Age/Sex: 63 / M ADM Date: 07/31/24 Loc: ER Room: Type: [facility] ER Attending Dr: Ordering Provider: Barry Logan MD Date of Service: 07/31/24 ECG/ECG 12 lead ECG: Dizziness Copies to: Test Reason : Blood Pressure : 129/87 mmHG Vent. Rate : 76 BPM Atrial Rate : 76 BPM P-R Int : 138 ms QRS Dur : 88 ms QT Int : 378 ms P-R-T Axes : 74 74 30 degrees QTcB Int : 425 ms Sinus rhythm with fusion complexes Otherwise normal ECG When compared with ECG of 23-Jul-2018 07:15, fusion complexes are now present Confirmed by BARRY LOGAN MD ([id number]) on 07/31/2024 7:13:13 PM Referred By: Electronically Signed By: BARRY LOGAN MD Transcribed By: MUS Signed By Barry Logan MD 07/31/24 [facility] Physician GroupEosinophils Auto (Bld) [#/Vol]Ordered By: Barry Logan on 63-54-6052Xsnluqnlvoy (Bld) [#/Vol]Automated eosinophil count 0.0-0.45[facility] Butler HospitalEosinophils/100 WBC Auto (Bld)Ordered By: Barry Logan on 25-21-5132Bnypgzakiix/100 WBC (Bld)Automated eosinophil %. [facility] Butler HospitalErythrocyte distribution width Auto (RBC) [Ratio]Ordered By: Barry Logan on 47-23-1338Hgxfjxaklvr distribution width (RBC) [Ratio]Erythrocyte distribution width [Ratio] by Automated count12.0-14.8 [facility] Butler HospitalGlobulin Calc (S) [Mass/Vol]Ordered By: Barry Logan on 30-33-5893Oigwaiiy (S) [Mass/Vol]Serum globulin measurement by calculation (mass/volume)[facility] HospitalGlucose [Mass/volume] in Serum or PlasmaOrdered By: Barry Logan on 54-77-1367Ppslpcl [Mass/Vol]Glucose [Mass/volume] in Serum or OptpkxZoeu50-079RatfhtbtnTrihealth Bethesda Butler Hospital Comment on above:ADA recommended reference rangeRandom Glucose Reference Range is dependent on time and content of last meal. Glucose of more than 200 mg/dL in a nonstressed, ambulatory subject supports the diagnosisof Diabetes Mellitus. Hematocrit Auto (Bld) [Volume fraction]Ordered By: Barry Logan on 07-31-2024 Hematocrit (Bld) [Volume fraction]Hematocrit [Volume Fraction] of Blood by Automated count38.8-50.0[facility] HospitalHemoglobin [Mass/volume] in BloodOrdered By: Barry Logan on 90-42-3990Cdhcdhwmrp (Bld) [Mass/Vol]Hemoglobin [Mass/volume] in Blood13.0-17.0[facility] HospitalLeukocytes [#/volume] corrected for nucleated erythrocytes in Blood by Automated counOrdered By: Barry Logan on 36-94-9033VCL corrected for nucl RBC Auto (Bld) [#/Vol]Leukocytes [#/volume] corrected for nucleated erythrocytes in Blood by Automated coun4.1-10.5FKettering Health Washington TownshipLymphocytes Auto (Bld) [#/Vol]Ordered By: Barry Logan on 59-40-5894Ctvnzlotneh (Bld) [#/Vol] Lymphocytes [#/volume] in Blood by Automated countLow1.00-4.8[facility] HospitalLymphocytes/100 WBC Auto (Bld)Ordered By: Barry Logan on 07-31-2024 Lymphocytes/100 WBC (Bld)Lymphocytes/100 leukocytes in Blood by Automated count. [facility] Auto (RBC) [Entitic mass]Ordered By: Barry Logan on 49-07-5999ZHX (RBC) [Entitic mass]MCH [Entitic mass] by Automated count 27.5-35.2[facility] CenterMCHC Auto (RBC) [Mass/Vol]Ordered By: Barry Logan on 74-36-7682XOOC (RBC) [Mass/Vol]MCHC [Mass/volume] by Automated count32.5-35.6FKettering Health Washington TownshipMCV Auto (RBC) [Entitic vol] Ordered By: Barry Logan on 00-94-7346QNI (RBC) [Entitic vol]MCV [Entitic volume] by Automated count83.5-101[facility] HospitalMonocyte distribution width [Entitic volume] in Blood by AutomatedOrdered By: Barry Logan on 07-31-2024 Monocyte distribution width Auto (Bld) [Entitic vol]Monocyte distribution width [Entitic volume] in Blood by Automated0.00-20.00[facility] HospitalMonocytes Auto (Bld) [#/Vol]Ordered By: Barry Logan on 32-13-2375Ekxefvwyd (Bld) [#/Vol]Automated blood monocyte count0.0-0.8[facility] HospitalMonocytes/100 WBC Auto (Bld)Ordered By: Barry Logan on 07-31-2024 Monocytes/100 WBC (Bld)Automated monocyte %.[facility] Neutrophils Auto (Bld) [#/Vol]Ordered By: Barry Logan on 57-55-2100Gpcjcokpxld (Bld) [#/Vol]Neutrophils [#/volume] in Blood by Automated count1.8-7.7FKettering Health Washington TownshipNeutrophils/100 WBC Auto (Bld)Ordered By: Barry Logan on 32-79-9249Tpqdllldlgv/100 WBC (Bld)Automated neutrophil %.[facility] HospitalNo Panel InformationOrdered By: Barry Logan on 55-12-6870Htaixyvgl GFR (CKD-EPI)> 60.0 mL/MinTrihealth Bethesda Butler HospitalPharmacy Creatinine Clearance (Chem90.76[facility] HospitalNucleated erythrocytes [Presence] in Blood by Automated countOrdered By: Barry Logan on 07-31-2024 Nucleated RBC Auto Ql (Bld)Nucleated erythrocytes [Presence] in Blood by Automated count0-0.5FKettering Health Washington TownshipPlatelet mean volume Auto (Bld) [Entitic vol]Ordered By: Barry Logan on 12-15-3969Qbpemeqo mean volume (Bld) [Entitic vol]Platelet mean volume [Entitic volume] in Blood by Automated count6.6-10.1FKettering Health Washington TownshipPlatelets Auto (Bld) [#/Vol] Ordered By: Barry Logan on 25-21-4628Fguqxxdoi (Bld) [#/Vol]Platelets [#/volume] in Blood by Automated oympn278-702NinakvxcyTrihealth Bethesda Butler HospitalPotassium [Moles/volume] in Serum or PlasmaOrdered By: Barry Logan on 93-28-8313Xzfknzedf [Moles/Vol]Potassium [Moles/volume] in Serum or Plasma3.5-5.1FKettering Health Washington TownshipProtein [Mass/volume] in Serum or PlasmaOrdered By: Barry Logan on 51-89-6544Xnvylsc [Mass/Vol]Protein [Mass/volume] in Serum or Plasma6.4-8.9 [facility] HospitalRBC Auto (Bld) [#/Vol]Ordered By: Barry Logan on 33-51-6698UXR (Bld) [#/Vol]Erythrocytes [#/volume] in Blood by Automated count 3.90-5.60[facility] Hospitalerum or plasma albumin/globulin mass ratioOrdered By: Barry Logan on 67-25-5311Lopfkgl/Globulin [Mass ratio]Serum or plasma albumin/globulin mass ratioMercy Health Anderson Hospitalerum or plasma anion gap determinationOrdered By: Barry Logan on 56-52-2764Qlijv gap [Moles/Vol]Serum or plasma anion gap determination6.0-15.0[facility] Hospitalodium [Moles/volume] in Serum or PlasmaOrdered By: Barry Logan on 33-78-4911Gmwcuq [Moles/Vol]Sodium [Moles/volume] in Serum or Ppbxhd348-806 [facility] HospitalTroponin I High Sensitivityon 07-31-2024 Troponin I High Caflyuanqnn6Xbjrns0-28Ntx [facility] Physician GroupComment on above:Result Comment: The Troponin units of report have been changed to meet the Chest Pain Accreditation requirement, element EC5.M1l2. Troponin units are changed from pg/ml to ng/L. Also, the decimal is removed and results are in whole numbers. PERFORMED BY: [facility] [address] [place] [id number] PATHOLOGIST [employer] ASIYA GOODSON M.D.Performed By: #### CMP, CK, HS TROP, CBC #### [place] [id number] USATroponin I.cardiac [Mass/volume] in Serum or Plasma by Detection limit <= 0.01 ng/Ordered By: Barry Logan on 47-57-9320Qymwnfib I.cardiac DL <= 0.01 ng/mL [Mass/Vol]Troponin I.cardiac [Mass/volume] in Serum or Plasma by Detection limit <= 0.01 ng/0-20[facility] Comment on above:The Troponin units of report have been changed to meet the Chest Pain Accreditation requirement, element EC5.M1l2. Troponin units are changed from pg/ml to ng/L. Also, the decimal is removed and results are in whole numbers.Urea nitrogen [Mass/volume] in Serum or PlasmaOrdered By: Barry Logan on 27-17-0154Ikxc nitrogen [Mass/Vol]Urea nitrogen [Mass/volume] in Serum or Plasma12-11[facility] HospitalWBC Auto (Bld) [#/Vol]Ordered By: Barry Logan on 86-11-0639OIH (Bld) [#/Vol]Leukocytes [#/volume] in Blood by Automated count4.1-10.5FKettering Health Washington TownshipX-ray reportOrdered By: Jerome Camacho on 84-80-9903Zbkfs reportCOMMUNITY REGIONAL [facility] [address] [place] [address] [id number] XRay Report Signed Patient: Nahum Goldsmith MR#: [id number] : 1960 Acct:[id number] Age/Sex: 63 / M ADM Date: 5 Loc: ER Room: Type: [facility] ER Attending Dr: Copies to: Barry Logan MD~ Ordering Provider: Barry Logan MD Date of Service: 07/31/24 XR/XR chest 1V portable: Dizziness SINGLE VIEW CHEST CLINICAL HISTORY: Dizziness for 3 days. COMPARISON: None FINDINGS: Heart normal in size. Lungs are clear. No free air. XR/XR chest 1V portable IMPRESSION: NO ACUTE FINDINGS Impression dictated by: Jerome Camacho Jr., D.O.07/31/2024 12:14 PM Dictation Location: RADIO-PC-23 Transcribed By: CHARY 07/31/241213 Dictated By: Jerome Camacho Jr, DO 07/31/241213 Signed By: 07/31/24 [facility] ClevelandMayuri [facility] HospitalXR chest 1V portableon 10-35-6196OA chest 1V portableCOMMUNITY REGIONAL MEDICAL [facility]ENTER [address] [place] [address] [place] [address] XRay Report Signed Patient: Nahum Goldsmith MR#: [id number] : 1960 Acct:[id number] Age/Sex: 63 / M ADM Date: 07/31/24 Loc: ER Room: Type: [facility] ER Attending Dr: Copies to: Barry Logan MD Ordering Provider: Barry Logan MD Date of Service: 07/31/24 XR/XR chest 1V portable: Dizziness SINGLE VIEW CHEST CLINICAL HISTORY: Dizziness for 3 days. COMPARISON: None FINDINGS: Heart normal in size. Lungs are clear. No free air. XR/XR chest 1V portable IMPRESSION: NO ACUTE FINDINGS Impression dictated by: Jerome Camacho Jr., D.O.07/31/2024 12:14 PM Dictation Location: RADIO-PC-23 Transcribed By: CHARY 07/31/241213 Dictated By: Jerome Camacho Jr, DO 07/31/241213 Signed By: 07/31/[address] [place] [address] Physician GroupCBC AUTO DIFFon 06-38-8994NZNH # 0.0 103/ulNormal0.0-0.1[facility] HospitalComment on above:Performed By: #### CBC #### [facility] [address] [address] [address] Jamel Appiahphils/100 WBC (Bld)0.5 %Normal0.2-2.0[facility] Comment on above:Performed By: #### CBC #### [facility] [address] [address] [address] Jamel Watson #0.1 103/ulNormal0.0-0.7The [facility] HospitalComment on above: Performed By: #### CBC #### [facility] [address] [place] [address] Dr. Jamel Allanosinophils/100 WBC (Bld)1.6 %Normal0.9-7.0The [facility] Comment on above:Performed By: #### CBC #### [facility] [address] [place] [address] Dr. Jamel Allanrythrocyte distribution width (RBC) [Ratio]13.1 %Xphgoz89.0-15.0 The [facility] HospitalComment on above:Performed By: #### CBC #### [facility] [address] [place] [address] Dr. Jamel GutierrezHematocrit (Bld) [Volume fraction]44.5 %Xxugea01.0-54.0The [facility] HospitalComment on above:Performed By: #### CBC #### [facility] [address] [place] [address] Dr. Jamel GutierrezHemoglobin (Bld) [Mass/Vol]15.1 g/uVJjgxao65.0-18.0The [facility] Health Centerment on above:Performed By: #### CBC #### [facility] [address] [place] [address] Dr. Jamel Delvalle #0.02 10e3/ulNormal0.00-0.03The [facility] HospitalComment on above:Performed By: #### CBC #### [facility] [address] [place] [address] Dr. Jamel Delvalle %0.4 %Normal0.0-0.5The [facility] HospitalComment on above: Performed By: #### CBC #### [facility] [address] [place] [address] Dr. Jamel Espinal #1.9 103/ulNormal1.2-3.8The [facility] HospitalComment on above:Performed By: #### CBC #### [facility] [address] [place] [address] Dr. Jamel Donohuemphocytes/100 WBC (Bld)34.7 %Embwmr36.5-60.0The [facility] HospitalComment on above:Performed By: #### CBC #### [facility] [address] [place] [address] Dr. Jamel ColvinUAL DIFF REQNONormalThe [facility] HospitalComment on above: Performed By: #### CBC #### [facility] [address] [place] [address] Dr. Jamel Hyde (RBC) [Entitic mass]30.5 msDnfzqf18.9-34.0The [facility] HospitalComment on above:Performed By: #### CBC #### [facility] [address] [place] [address] Dr. Jamel Hyde (RBC) [Mass/Vol]33.9 g/lVQtsztn09.9-35.2The [facility] HospitalComment on above:Performed By: #### CBC #### [facility] [address] [place] [address] Dr. Jamel Hyde (RBC) [Entitic vol]89.9 mBVtekew24.0-94.0The [facility] HospitalComment on above:Performed By: #### CBC #### [facility] [address] [place] [address] Dr. Jamel Barnhart #0.6 103/ulNormal0.3-0.8The [facility] HospitalComment on above:Performed By: #### CBC #### [facility] [address] [place] [address] Dr. Jamel Myersocytes/100 WBC (Bld)11.1 %Normal1.7-12.0The [facility] Comment on above:Performed By: #### CBC #### [facility] [address] [place] [address] Dr. Jamel Fuller #2.9 103/ulNormal1.4-6.5The [facility] HospitalComment on above:Performed By: #### CBC #### [facility] [address] [address] [address] Jamel Montanoutrophils/100 WBC (Bld)51.7 %Tcyzff44.0-75.0The [facility] on above:Performed By: #### CBC #### [facility] [address] [address] [address] Jamel GutierrezPlatelet mean volume (Bld) [Entitic vol]9.0 fLCritically low 9.5-13.5The [facility] HospitalComment on above:Performed By: #### CBC #### [facility] [address] [place] [address] Dr. Jamel GutierrezPLT225 103/ogIuzaoz824-182Lxh [facility] on above: Performed By: #### CBC #### [facility] [address] [place] [address] Dr. Jamel GutierrezRBC4.95 106/ulNormal4.70-6.10The [facility] HospitalComment on above:Performed By: #### CBC #### [facility] [address] [place] [address] Dr. Jamel GutierrezWBC5.6 103/ulNormal4.0-11.0The [facility] HospitalComment on above: Performed By: #### CBC #### [facility] [address] [place] [address] Dr. Jamel RubiID PROFILEon 67-32-1571TTRK-HDL RATIO NORMSEE Marion HospitalComment on above:Result Comment: 3.3 - 4.4 LOW RISK 4.4 - 7.1 AVERAGE RISK 7.1 - 11.0 MODERATE RISK >11.0 HIGH RISKPerformed By: #### CMP, LIPID #### [facility] [address] [place] [address] Dr. Jamel GutierrezCholesterol [Mass/Vol]181 mg/dLNormal<=200The [facility] Comment on above:Performed By: #### CMP, LIPID #### [facility] [address] [place] [address] Dr. Jamel Carrilloesterol in HDL [Mass/Vol]66 mg/dLCritically ktgs62-68EboMercy Memorial Hospital on above:Performed By: #### CMP, LIPID #### [facility] [address] [place] [address] Dr. Jamel GutierrezCholesterol in LDL [Mass/Vol]83.2 mg/dLProMedica Bay Park Hospital on above:Performed By: #### CMP, LIPID #### [facility] [address] [place] [address] Dr. Jamel Pablo.total/Cholesterol in HDL [Mass ratio]2.7 {ratio} NormalMercy Memorial Hospital on above:Performed By: #### CMP, LIPID #### [facility] [address] [place] [address] Dr. Jamel Escobar NORMAL> or = 60 mg/dl - LOW CARDIOVASCULAR RISK <40 mg/dl - HIGH CARDIOVASCULAR RISKMercy Health West HospitalComuniversity of [facility] health on above:Performed By: #### CMP, LIPID #### [facility] [address] [place] [address] Dr. Jamel Vallejo CALC NORMALSEE BELOWMercy Health West HospitalComuniversity of michigan health on above:Result Comment: <100 mg/dl OPTIMAL 100 - 129 mg/dl NEAR OR ABOVE OPTIMAL 130 - 159 mg/dl BORDERLINE HIGH 160 - 189 mg/dl HIGH >190 mg/dl VERY HIGH Performed By: #### CMP, LIPID #### [facility] [address] [place] [address] Dr. Jamel GutierrezTriglyceride [Mass/Vol]159 mg/dLCritically high<=150The [facility] on above:Performed By: #### CMP, LIPID #### [facility] [address] [place] [address] Dr. Jamel GutierrezVLDL CALC31.8 mg/dLMercy Health West HospitalComuniversity of mich[facility] health on above: Performed By: #### CMP, LIPID #### [facility] [address] [place] [address] Dr. Jamel GutierrezPROF 14(COMP METB)on 10-28-6818Insvxbm [Mass/Vol]4.0 g/dLNormal 3.4-5.0The [facility] HospitalComment on above:Performed By: #### CMP, LIPID #### [facility] [address] [place] [address] Dr. Jamel GutierrezAlbumin/Globulin [Mass ratio]1.1 {ratio}NormalThe [facility] HospitalComment on above:Performed By: #### CMP, LIPID #### [facility] [address] [place] [address] Dr. Jamel Butterfield [Catalytic activity/Vol]66 U/ONsjbou93-137Bvb [facility] HospitalComment on above:Performed By: #### CMP, LIPID #### [facility] [address] [place] [address] Dr. Jamel Thorpe [Catalytic activity/Vol]37 U/NGwgche27-11Inr [facility] HospitalComment on above:Performed By: #### CMP, LIPID #### [facility] [address] [place] [address] Dr. Jamel Farr gap [Moles/Vol]7.6 mmol/LNormalThe [facility] HospitalComment on above:Performed By: #### CMP, LIPID #### [facility] [address] [place] [address] Dr. Jamel Santa [Catalytic activity/Vol]15 U/GNpldbj25-89Wsy [facility] HospitalComment on above:Performed By: #### CMP, LIPID #### [facility] [address] [place] [address] Dr. Jamel GutierrezBilirubin [Mass/Vol]0.7 mg/dLNormal0.2-1.0The [facility] Comment on above:Performed By: #### CMP, LIPID #### [facility] [address] [place] [address] Dr. Jamel GutierrezCalcium [Mass/Vol]8.9 mg/dLNormal8.5-10.1The [facility] Comment on above:Performed By: #### CMP, LIPID #### [facility] [address] [place] [address] Dr. Jamel GutierrezChloride [Moles/Vol]104 mmol/ZHnscva84-720Qdt [facility] Comment on above:Performed By: #### CMP, LIPID #### [facility] [address] [place] [address] Dr. Jamel GutierrezCO2 [Moles/Vol]33.5 mmol/LCritically high21.0-32.0The [facility] HospitalComment on above:Performed By: #### CMP, LIPID #### [facility] [address] [place] [address] Dr. Jamel GutierrezCreatinine [Mass/Vol]1.04 mg/dLNormal0.70-1.30The [facility] HospitalComment on above:Performed By: #### CMP, LIPID #### [facility] [address] [place] [address] Dr. Jamel AllanGFR-AF CYMRO>60Normal>=60The [facility] HospitalComment on above:Performed By: #### CMP, LIPID #### [facility] [address] [place] [address] Dr. Jamel AllanGFR-NON AF CYMRO>60Normal>=60The [facility] HospitalComment on above:Performed By: #### CMP, LIPID #### [facility] [address] [place] [address] Dr. Jamel GutierrezGlobulin (S) [Mass/Vol]3.6 g/dLNormalThe [facility] HospitalComment on above:Performed By: #### CMP, LIPID #### [facility] [address] [place] [address] Dr. Jamel GutierrezGlucose [Mass/Vol]87 mg/pOGcxwrh28-729Nlb [facility] Comment on above:Performed By: #### CMP, LIPID #### [facility] [address] [place] [address] Dr. Jamel GutierrezPotassium [Moles/Vol]4.1 mmol/LNormal3.5-5.1The [facility] Comment on above:Performed By: #### CMP, LIPID #### [facility] [address] [place] [address] Dr. Jamel GutierrezProtein [Mass/Vol]7.6 g/dLNormal6.4-8.2[facility] Comment on above:Performed By: #### CMP, LIPID #### [facility] [address] [address] [address] Jamel GutierrezSodium [Moles/Vol]141 mmol/HCugrim730-722Owv [facility] Comment on above:Performed By: #### CMP, LIPID #### [facility] [address] [address] [address] Jamel GutierrezUrea nitrogen [Mass/Vol]20.0 mg/dLCritically high7.0-18.0[facility] HospitalComment on above:Performed By: #### CMP, LIPID #### [facility] [address] [address] [address] Jamel Rutherford nitrogen/Creatinine [Mass ratio]19.2 mg/mgNormalThe [facility] HospitalComment on above:Performed By: #### CMP, LIPID #### [facility] [address] [address] [address] Jamel Gutierrez Vital Signs Date TimeVital SignValuePerforming XpxlwgbvlCrvvqomu73-13-5667 11:40-0400Body gmaybp542.8 cmBenjamin Ball DO Work Phone: [phone]10-31-2025 11:40-0400 Body mass index (BMI) [Ratio]30.5 kg/q1Hmwldzag Ball DO Work Phone: [phone] [place], [place] 5744010-31-2025 11:40-0400 Body lnnizlhfnjj64.4 [degF]Erasmo Ball DO Work Phone: [phone]10-31-2025 11:40-0400 Body gbenjv61.61 kgBenjamin Ball DO Work Phone: [phone]10-31-2025 11:40-0400 Diastolic blood kqvoodzk84 mm[Hg]Erasmo Ball DO Work Phone: [phone]10-31-2025 11:40-0400 Heart rate86 /minBenjamin Ball DO Work Phone: [phone] [place], [place] [address]10-31-2025 11:40-0400 Respiratory rate16 /minBenjamin Ball DO Work Phone: [phone] [place], [place] [address]446910-31-2025 11:40-0400 SaO2% (BldA) [Mass fraction]98 %Erasmo Ball DO Work Phone: [phone])[facility] [place], [place] 5744010-31-2025 11:40-0400 Systolic blood mlccjedi006 mm[Hg]Erasmo Ball DO Work Phone: [phone])[address] [place], [place] [address]03-14-2025 11:30-0400 Diastolic blood opptxedr81 mm[Hg]Erasmo Ball DO Work Phone: [phone])[address] [place], [place] [address]03-14-2025 11:30-0400 Heart rate69 /minBenjamin Ball DO Work Phone: [phone])[address] [place], [place] [address]44[address]03-14-2025 11:30-0400 Respiratory rate18 /minBenjamin Ball DO Work Phone: [phone] [place], [place] [address]44[address]03-14-2025 11:30-0400 SaO2% (BldA) [Mass fraction]97 %Erasmo Ball DO Work Phone: [phone] [place], [place] [address]03-14-2025 11:30-0400 Systolic blood cjcyoxvb296 mm[Hg]Erasmo Ball DO Work Phone: [phone] [place], [place] [address]03-14-2025 10:38-0400 Body xbwuqr425.8 cmBenjamin Ball DO Work Phone: [phone])[facility] [place], [place] 57[address]003-14-2025 10:38-0400 Body dontuhpxaem18.1 [degF]Erasmo Ball DO Work Phone: [phone] [place], [place] [address]03-14-2025 10:38-0400 Body toqzdl29.3 kgBenjamin Ball DO Work Phone: [phone] [place], [place] [address]44[address]12-01-2023 11:30-0500 Body ahenvc862.88 cmBenjamin Ball Other [facility] Other 12-01-2023 11:30-0500Body mass index (BMI) [Ratio] 29.07 kg/s6Zbqrdobq Ball Other [employer] Other 12-01-2023 11:30-0500Body jaeddu36.25 kgBenjamin Ball Other [facility] Other 12-01-2023 11:30-0500Diastolic blood iakebyke91 mm[Hg] Erasmo Ball Other [place] [employer] Other 12-01-2023 11:30-0500Respiratory rate12 /minBenjamin Ball Other [place] [employer] Other 12-01-2023 11:30-0500Systolic blood updoixpu617 mm[Hg] Erasmo Ball Other [place] [employer] Other 08-23-2023 11:00-0400Body ilreqd093.88 cmJustin Angie Other [facility] Other 08-23-2023 11:00-0400Body mass index (BMI) [Ratio]27.8 kg/o1Rsqzxx Angie Other [facility] Other 08-23-2023 11:00-0400Body ttkkuh57.99 kgJustin Angie Other [facility] Other 04-14-2023 09:27-0400Diastolic blood miueaqqx77 mm[Hg] DO Erasmo Ball Work Phone: [facility]04-14-2023 09:27-0400 Heart rate74 /minDO Erasmo Ball Work Phone: [facility]04-14-2023 09:27-0400 Respiratory rate20 /Abhi Griffin Work Phone: [facility]04-14-2023 09:27-0400 SaO2% (BldA) [Mass fraction]98 %DO Erasmo Griffin Work Phone: [facility]04-14-2023 09:27-0400 Systolic blood irkyixpm746 mm[Hg]DO Erasmo Griffin Work Phone: [facility]04-14-2023 07:24-0400 Body sywsup826.8 cmDO Erasmo Griffin Work Phone: [facility]04-14-2023 07:24-0400 Body pdfsaafawiw47.8 [degF]DO Erasmo Griffin Work Phone: [facility]04-14-2023 07:24-0400 Body loxqlk79.71 kgDO Erasmo Griffin Work Phone: [facility]03-01-2023 08:15-0500 Body ctuxik789.88 cmJustbarbie Adams Other [facility] Other 03-01-2023 08:15-0500Body mass index (BMI) [Ratio] 29.29 kg/c5Fajmbobarbie Adams Other [facility] Other 03-01-2023 08:15-0500Body xatnqj68.98 kgJustbarbie Adams Other [facility] Other Encounters Encounter DateEncounter TypeCare ProviderFacilityStart: 03-19-2025 End: 98-43-0198loealqiculZatsdthj Ball DO Work Phone: -[facility]Start: 03-19-2025 End: 45-39-4341Czpadqi encounter procedureBerosyseveriano Griffin DO-[facility] Work Phone: start: 03-19-2025 End: 91-47-3150Yczxlvz encounter statusBenseveriano Ball DOMercy Health Anderson Hospitaltart: 51-30-3019Xmgkfnn encounter statusBenseveriano Ball DO Work Phone: [facility] Hospitaltart: 07-31-2024 End: 86-82-5922Wbfobsday department patient visitBenseveriano Griffin DO Work Phone: [facility]-Emergency Room Work Phone: Start: 06-07-2023 End: 31-42-3216duheowudtvLyhpadwq Ball Other no[employer]iney Other Start: 06-18-7245Nmhgktnip encounterBenseveriano GarrisonG [facility] Medical ClinicStart: 05-14-2023 End: 50-33-9139kehjrklcpkCfolmlbw Ball Other [facility] Other Start: 81-46-3422Uyotlgxsm encounterBenseveriano GarrisonG [facility] Medical ClinicStart: 04-29-2023 End: 41-67-3524zptswnhemzNwtgceil Ball Other [employer]ine[employer] Other Start: 49-35-0550Mdwpvnymi encounterBenjamin BallTRICIAG [facility] Medical ClinicStart: 04-19-2023 End: 21-38-6025exvceotocoTodyrgxd Ball Other [employer]ine[employer] Other Start: 95-42-3607Mlhqxbiiy for general adult medical examination without abnormal findingsBenkathleenmin BallTRICIAG [facility] Medical ClinicStart: 45-16-9162Mpkjgukj preventive med est patient 40-64yrsBenseveriano GarrisonG [facility] Medical ClinicStart: 01-09-2023 End: 82-98-9217yqntynrmaoGsuwem Kelley Other [facility] Other Start: 02-80-6910Tfvogf outpatient visit 15 minutes Timo Thorpe [facility]icsStart: 2022 End: 82-68-0750wjhntzjfrtSvwkyq Kelley Other [facility] Other Start: 84-49-5368Yoitnplmm encounterJustbarbie LoyachampTRICIAAngie Montoya OrthopedicsStart: 08-31-2022 End: 56-14-8510Ajljsbdne to same day surgery centerDO Erasmo Artoo Work Phone: [facility] Work Phone: Start: 08-31-2022 End: 64-99-6380qbpidlbzgrMJ Erasmo Artoo Work Phone: [facility] Work Phone: Start: 07-18-2022 End: 39-98-5521iwhehxvzxdYkqihp Kelley Other [facility] Other Start: 98-17-4496Ocmznxz encounter procedureJubarbie LoyachampTRICIAAngie Montoya OrthopedicsStart: 81-85-9476Ttzhrrjan for general adult medical examination without abnormal findings ERASMO GRIFFINSelect Medical Specialty Hospital - [facility]ron HospitalStart: 80-82-4936Vnvkaxmem encounterCameron LiuyBOBO Referral CoordinatorStart: 04-23-2022 End: 42-97-0146gvpkaqhnwsVC [place]ASMO [place]RIFFINHollidaysburg tw[facility] Other Start: 04-23-2022 End: 90-81-3293Ysjezynqp for general adult medical examination without abnormal findings ERASMO GRIFFINYeseniacility:Z5Suzon: 68-96-9964Lgtir health examination Timo Adams Other [facility] Other Start: 12-14-2021 End: 06-30-9032achdbrwaofTwjmsf Kelley Other [employer] Other Start: 37-74-7335Geynacpps encounterJucrissy [facility]oya OrthopedicsStart: 09-15-2021 End: 98-18-3878fucutajsikKeztfj Kelley Other noMindscore [facility] Other Start: 49-35-7166Rhzagy outpatient visit 25 minutes Timo Maurilio [facility] Procedures DateProcedureProcedure DetailPerforming ClinicianStart: 52-94-8526Qrtml chest X-rayBenjamin Ball DO Work Phone: Start: 66-55-7554JP of head without contrastBenjamin Ball DO Work Phone: Start: 71-83-0753Lceaeixwf colonoscopyDO Erasmo Artoo Work Phone: Start: 70-09-3553BLX screeningDR ERASMO GRIFFINComment on above:Performed By: #### PSASC #### [facility] [address] [place] [address] Dr. Jamel GutierrezStart: 92-50-6459Lzoyaxrfs for malignant neoplasm of colonTimo Adams Other Start: 29-51-1065Vmawduc examination of patientTimo Adams Other Start: 48-19-8682Yofvqthxv for malignant neoplasm of prostateTimo Adams Other Depression screeningJucrissy Adams Other Plan of Treatment DateCare ActivityDetailAuthorStart: 47-67-2313MhaidarloTrihealth Bethesda Butler Hospital Comprehensive metabolic 2000 panel - Serum or PlasmaTrihealth Bethesda Butler HospitalPatient EducationVertigo ED Dizziness in adults - ED discharge instructionsTrinity Health System Ctr Work Phone: Patient referralTrinity Health System Ctr Work Phone: [facility] Immunizations Immunization DateImmunizationNotesCare ZjgfskepKaaehloz97-94-8565qallgfc and diphtheria toxoids, adsorbed, preservative free, for adult use (5 Lf of tetanus toxoid and 2 Lf of diphtheria toxoid)Timo Adams Other [facility]10-20-2016influenza virus vaccine, split virus (incl. purified surface antigen)Timo Loyaley Other [facility] Other [id number] virus vaccine, unspecified formulationBenjamin Ball DO Work Phone: [facility]11-29-2015influenza virus vaccine, split virus (incl. purified surface antigen)Timo Loyaley Other [facility] Other [id number] virus vaccine, unspecified formulationBenjamin Ball DO Work Phone: [facility] Payers DatePayer CategoryPayerPolicy [id number] Social History DateTypeDetailFacilitySex Assigned At [facility] Other Start: 08-31-2022 End: 79-07-9500Linejzm smoking status NHISNever smoked tobacco (finding) [facility] Hospitaltart: 49-30-0713Jvl Assigned At [facility] Centertart: 23-83-3506EavVujd (finding)[facility] Goals DatePatient GoalDesired Activity/State Clinical Notes 09-15-2021 to 07-31-2024 Note Date & TxrmOobhLccqemtl58-33-8642 Radiology Diagnostic study [facility] [place] [address] [place] [address] CT Scan Report Signed Patient: Nahum Goldsmith MR#: [id number] : 1960 Acct:[id number] Age/Sex: 63 / M ADM Date: 5 Loc: ER Room: Type: [facility] ER Attending Dr: Copies to: Barry Logan MD~ Ordering Provider: Barry Logan MD Date of Service: 07/31/24 CT/CT head/brain wo con: lightheadedness/dizziness CT BRAIN WITHOUT CONTRAST: CLINICAL HISTORY: Dizziness for 4 days. COMPARISON: None TECHNIQUE: Contiguous axial unenhanced images were obtained through the brain. This CT exam was performed using one or more following dose reduction techniques: Automated exposure control, adjustmentof the mA and/or kV accordingto patient size, or use of iterative reconstruction technique. FINDINGS: There is no evidence of midline shift, intra or extra-axial fluid collection, hemorrhage or CT evidence of stroke. Posterior fossa appears unremarkable. Visualized intraorbital contents demonstrate no acute findings. Visualized paranasal sinuses are clear. The surrounding soft tissues are normal. CT/CT head/brain wo con IMPRESSION: NO ACUTE INTRACRANIAL ABNORMALITY. Impression dictated by: Jerome Camacho Jr., D.O.07/31/2024 12:15 PM Dictation Location: [place] [address] Transcribed By: [facility] 07/31/241214 Dictated By: Jerome Camacho Jr, DO 07/31/241214 Signed By: 07/31/241214 [facility]01-19-2024 Evaluation note* Encounter Date Diagnosis Assessment Notes Treatment Notes Treatment Clinical Notes May, Primary hypertension (ICD-10 - I 10) [facility] Other 12-01-2023 Evaluation note* Encounter Date Diagnosis Assessment Notes Treatment Notes Treatment Clinical Notes Apr, Wellness examination (ICD-10 - Z 00.00) Healthy diet and exercise. Reviewed age-appropriate preventive testing recommended. Apr,rimary hypertension (ICD-10 - I10)This patient is instructed to consume a healthy, low-fat, low-salt diet. They are also encouraged to continue exercise to achieve/maintain a normal BMI. Apr,Hypercholesteremia (ICD-10 - E78.00)Instructed on diet and exercise with continued statin therapy.Discussed the beneficial effects of lowering cholesterol in reducing the risk for cerebrovascular and cardiovascular disease. Apr,Lumbar spondylosis (ICD-10 - M47.816)The patient is instructed to avoid bending, twisting or lifting. They are to use intermittent heat and ice as needed. They may schedule a massage or gentle manipulation. They may safely use Tylenol as needed. Apr,Overweight (ICD-10 - E66.3)This patient has been instructed on a low-fat, high-fiber diet. They are instructed to reduce calories, portion sizes and snacks. It is recommended that they exercise for 30 minutes, 3-5 times weekly. Apr,Screening PSA (prostate specific antigen) (ICD-10 - Z12.5)Yearly PSA and YOKO [facility] Other 08-23-2023 Evaluation note* Encounter Date Diagnosis Assessment Notes Treatment Notes Treatment Clinical Notes Dec, Acute pain of right shoulder (IC D-10 - M25.511) Dec,iceps tendinitis of right upper extremity (ICD-10 - M75.21)Today biceps tendinitis does seem to be bothering him. He wants to try repeat cortisone injection today. Under sterile technique patient's right shoulder was injected in the bicipital groove and biceps tendon with 4 cc of Marcaine and 1 cc of Kenalog, he tolerated this well. We will continue to monitor this. Consider MRI in future The patient has been involved in our cooperative treatment plan and agrees to move forward with treatment at this time. Extensive discussion about current condition and treatment options available. A marcaine/kenalog cortisone injection was performed into the region of the intertubercular groove and proximal biceps tendon. Patient tolerated the injection well without adverse reaction. Dec,Trigger finger, left middle finger (ICD-10 - M65.332)Nonoperative treatment including splinting, activity modification and NSAIDs have been discussed with the patient. Cortisone injections have been discussed and offered as well and the risks of fat atrophy, tendon rupture and transient hyperglycemia were discussed and understood. The surgical release of the A1 romario has been discussed along with possible complications and risks including digital nerve injury, bowstringing, wound healing issues, postoperative pain and stiffness and the possibility of the need for therapy. Risks and benefit of injection were discussed and verbal consent was obtained. Under sterile technique the patient's left middle finger A1 romario was injected via the volar approach with 1/2 cc of Marcaine and 1/2 cc of Kenalog, this was tolerated well without any adversereaction. Band-Aid was applied to the area. Extensive discussion about current condition and treatment options available. Patient was prepped and cortisone was injected into the tendon sheath of the left long finger under sterile conditions. Patient tolerated well with no adverse reactions. Activity as tolerated. Dec,Left carpal tunnel syndrome (ICD-10 - G56.02) Dec,Right carpal tunnel syndrome (ICD-10 - G56.01) [facility] Other 04-14-2023 Procedure noteTrihealth Bethes[facility] Hospital04-01-2023 History general Narrative - Reported* Type Description Date Medical History high blood pressure Medical Historyhigh cholesterolMedical HistoryIBSSurgical HistoryColonoscopy 08/2022 [facility] Other 04-01-2023 History general Narrative - Reported* Type Description Date Medical History high blood pressure Medical Historyhigh cholesterolMedical HistoryIBSSurgical HistoryColonoscopy 08/2022Hospitalization Historysee surgical hx [facility] Other 03-01-2023 Evaluation note* Encounter Date Diagnosis Assessment Notes Treatment Notes Treatment Clinical Notes Jul, Acute pain of right shoulder (IC D-10 - M25.511) Jul,iceps tendinitis of right upper extremity (ICD-10 - M75.21)Today biceps tendinitis does not seem to be bothering him as much. Seems to more of a subacromial impingement. He wants to try repeat cortisone injection today. Under sterile technique patient's right shoulder was injected in the subacromial space with 4 cc of Marcaine and 1 cc of Kenalog, he tolerated this well. We will continue to monitor this. Consider MRI in future The patient has been involved in our cooperative treatment plan and agrees to move forward with treatment at this time. A 1/1cc marcaine / kenalog cortisone injection was performed into the subacromial space under sterile technique. Patient tolerated the injection well with no adverse reaction. Jul,Trigger finger, left middle finger (ICD-10 - M65.332)Nonoperative treatment including splinting, activity modification and NSAIDs have been discussed with the patient. Cortisone injections have been discussed and offered as well and the risks of fat atrophy, tendon rupture and transient hyperglycemia were discussed and understood. The surgical release of the A1 romario has been discussed along with possible complications and risks including digital nerve injury, bowstringing, wound healing issues, postoperative pain and stiffness and the possibility of the need for therapy. We performed 2/1cc marcaine/40mg kenalog cortisone injection into the palmar aspect of the finger near at the A1 romario under sterile technique. The patient tolerated this well without complication. We discussed that the finger may feel numb and tingle for hours after this injection. Jul,Left carpal tunnel syndrome (ICD-10 - G56.02) Patient continues to do well with bilateral carpal tunnel symotoms. He will continue to use braces and we will order an oral steroid today. Patient is agreeable. Jul,Right carpal tunnel syndrome (ICD-10 - G56.01) [facility] Other 04-29-2022 Evaluation note* Encounter Date Diagnosis Assessment Notes Treatment Notes Treatment Clinical Notes Aug, Acute pain of right shoulder (IC D-10 - M25.511) Extensive discussion was had about the current condition and treatment options available. Patient instructed on use of occasional heat to area and motion exercise. I will provide a prescription for Meloxicam today along with directions of use. Risks and side effects of this medication was discussedin detail with the patient who voiced understanding. A cortisone injection was performed into the biceps tendon and subacromial joint under sterile technique. Patient tolerated the injection well without adverse affect. Aug,iceps tendinitis of right upper extremity (ICD-10 - M75.21)Nahum returns today with returned right shoulder biceps tendinitis. At this juncture we have discussed the findings and diagnosis as well as personally reviewed appropriate imaging and performed interpretation of related testing and examination with the patient in office today. Prior medical notesfrom our prior visit and history have been reviewed. Today we have discussed conservative treatmentwith anti-inflammatories as well as cortisone injection which patient would like to proceed with. Today under sterile technique the patient's right biceps tendon and bicipital groove were injected with 4 cc Marcaine 1 cc of Kenalog. He tolerated this well. Follow-up as needed Consider MRI in future for possible biceps tenodesis The patient has been involved in our cooperative treatment plan and agrees to move forward with treatment at this time. Aug,Trigger finger, left middle finger (ICD-10 - M65.332)The finding and diagnosis of trigger finger has been discussed at length with the patient. The mechanism of stenosing tenosynovitis and the effect on smooth tendon glide at the level of the A1 pulleyhave been discussed with the patient. Nonoperative treatment including splinting, activity modification and NSAIDs have been discussed with the patient. Cortisone injections have been discussed and offered as well and the risks of fat atrophy, tendon rupture and transient hyperglycemia were discussed and understood. The surgical release of the A1 romario has been discussed along with possible complications and risks including digital nerve injury, bowstringing, wound healing issues, postoperative pain and stiffness and the possibility of the need for therapy. At this time the patient elects toproceed with cortisone injection which we have performed under sterile technique today. He tolerated well. Continue observation. This appears to trigger finger. We discussed the cause of this condition and the treatment options.We discussed stretching of the finger as well as massage of the palmar MCP region. We discussed theuse of cortisone injection into the palmar aspect of the hand at the trigger site can be helpful inrelieving painful symptoms. We also discussed the option of surgical release which can eliminate the problem. We performed cortisone injection into the palmar aspect of the finger near at the A1 romario under sterile technique. The patient tolerated this well without complication. We discussed that the finger may feel numb and tingle for hours after this injection. [facility] Other Evaluation noteNo InformationNort twidox Other Evaluation noteNo assessment information available [facility] Work Phone: Evaluation note* Diagnosis Onset Date Resolution Status Admit Date Hypercholesterolemia acuteOctober 2024 11:15amHypertensionacuteOctober 2024 11:15amLumbar spondylosisacuteOctober 2024 11:15amScreening PSA (prostate specific antigen)acuteOctober 2024 11:15amWellness examinationacuteOctober 2024 11:15amBenign paroxysmal positional vertigo of left earnoneactiveOctober 2024 11:15am [facility] Work Phone: History and physical note Author Baljinder Chavez [facility] August 31, 2022 8:44amNote Date/TimeApril 2022 8:44[place] [address] Gastroenterology H&P Signed Patient: Nahum Goldsmith MR#: [id number] : 1960 Acct:[id number] Age/Sex: 61 / M Adm Date: 3 Loc: Room: Type: [facility] Attending Dr: Baljinder Chavez MD Copies to: DO Baljinder Zayas MD~ Date of Service: 08/31/2022 HISTORY & PHYSICAL: Patient's history with special attention to the cardiovascular, pulmonary systems and the current problem was reviewed with the patient immediately prior to the procedure. Present medications and doses reviewed in the EMR. Allergies and pertinent laboratory tests were also re viewedat this time in the EMR. The physical examination, as below, was then performed. Indication, assessment and HPI: This is a 61-year-old male who presents for screening colonoscopy Family history of GI malignancy? No PHYSICAL EXAMINATION Mouth and Pharynx : Moist mucus membranes, normal dentition Cardiac: Regular rate, regular rhythm Pulmonary: Clear to auscultation bilaterally, no wheezing Neurological: Alert and oriented x3, no focal deficits noted Abdomen: Abdomen soft, non-tender REVIEW OF SYSTEMS Constitutional: Denies malaise, fevers Cardiovascular: Denies chest pain, palpitations Respiratory: Denies shortness of breath, wheezing Gastrointestinal: Per HPI Genitourinary: Denies dysuria, polyuria Musculoskeletal: Denies joint swelling, joint stiffness Neurological: Denies numbness, tingling Integumentary: Denies rashes, skin lesions Endocrine: Denies fatigue, weight loss Written informed consent obtained from the patient. Risks (including but not limited to perforation, infection, bloating, bleeding, need for emergent surgeryand loss of life), benefits and alternatives explained and questions answered. The patient verbalized understanding. Based on history patient is an appropriate candidate for the procedure. Baljinder Chavez MD Documented By: Baljinder Chavez MD 08/31/2243 Signed By: <Electronically signed by Baljinder Chavez MD> 08/31/2244 [facility] Work Phone: History general Narrative - Reported* Type Description Date Medical History high blood pressure Medical Historyhigh cholesterolMedical HistoryIBS [place] [facility] Other Hospital Discharge instructions Additional Instructions DISCHARGE INSTRUCTIONS FOR COLONOSCOPY WHAT TO EXPECT: - You may feel full, gassy or cramping after your procedure. In some cases, this may be from a few hours to a day. Walking may help relieve the discomfort. - If you have polyp(s) removed you may note some minor bloody discharge after your first bowel movements. - You should begin to recover from anesthesia within 1 hour of the procedure, however may feel groggy for the next 24 hours. DO's AND DON'Ts: - Call your doctor right away if you have a hard abdomen, severe pain, are passing lots of bright red blood or clots. - Call your doctor if you develop any rashes, hives or difficulty breathing. - Let your doctor know if you have not had a bowel movement by 3 days after your procedure. - If you take 81 mg aspirin for your heart it is safe to resume this medication. - If you take other blood thinner medications your doctor will instruct you when these can safely be resumed. - Do NOT drive for 24 hours. - Do NOT operate machinery such as power tools, lawn mowers, snow blowers, sewing machines, etc. for 24 hours. - Avoid alcoholic beverages and drugs for allergies, nerves, or sleep. - Do NOT stay alone. Do NOT leave your child unattended. - Do NOT make important personal or business decisions or sign any legal documents. - Eat solid foods and drink liquids in smaller amounts than usual until normal appetite returns. If you should experience an upset stomach, liquids high in sugar content (soda, Edward-Aid, non-acid juices) are recommended. - You can resume normal activities tomorrow. FOLLOW UP & RECOMMENDATIONS: -Follow-up in the office as needed -Notify the doctor if you have any problems. -Repeat colonoscopy in 10 years. -Follow up with PCP. -Office number [phone].[facility] Work Phone: Reason for referral (narrative)No reason for referral information availableOhio Valley Surgical Hospital Work Phone: Summary Purpose Family History Relationship Condition Age at Onset Recorded Date/T lori sister Heart disease Unknown brotherHeart diseaseUnknown Relationship Condition Age at Onset Recorded Date/T lori sister Heart disease Unknown brotherHeart diseaseUnknownfatherMalignant neoplasmUnknown Advance Directives Advance Directive Response Recorded Date/ Time Advance Directives No July 21 3:28pm Advance Directive Response Recorded Date/ Time Advance Directives No March 19, 2025 12:16pm Chief Complaint and Reason for Visit Chief Complaint Screening Chief Complaint Admit Date dizzy, vomiting July 31, 2024 10: 34am Chief Complaint Admit Date Wellness March 19, 2025 1 1:15am Reason for Visit Admit Date Hypercholesterolemia March 19, 2025 11:15am Hypertension March 19, 2025 1 1:15am Lumbar spondylosis March 19, 2025 1 1:15am Screening PSA (prostate specific antigen ) March 19, 2025 11:15am Wellness examination March 19, 2025 11:15am Benign paroxysmal positional vertigo of left ear March 19, 2025 11:15am Additional Source Comments REASON FOR VISIT (unrecogniz ed section and content) Recheck Right Shoulder & Lef t Middle Fingerrx requestMAIL PPWRecheck Bilateral Handsrx requestRight Shoulder Pain, Left Hand PainWELLNESSBPLab resultsrefill (unrecognized sect ion and content) No Status Records FoundNo Status Records Found INFORMATION SOURCE (unrecogn ized section and content) DATE CREATED AUTHOR 04/28/2022 [facility] DATE CREATED AUTHOR AUTHOR'S ORGANIZ ATION 08/12/2024 [facility] Care Teams (unrecognized sec tion and content) Team Status: Active Member Role Status Dates Erasmo Griffin , Primary Care Provider Active Team Status: Inactive Member Role Status Dates Erasmo Griffin , Primary Care Provider Active Rocío Riddle ProviderActive Team Status: Inactive Member Role Status Dates Erasmo Griffin , Primary Care Provider Active Start: July 31, 2024 End: July 31, 2024Vania Adams ProviderActiveStart: July 31, 2024 End: July 31, 2024 Team Status: Active Member Role/Relationship Status Dates Erasmo Griffin , Primary Care Provider Active Team Status: Inactive Member Role/Relationship Status Dates Erasmo Griffin , Primary Care Provider Active Start: March 19, 2025 End: March 19enseveriano Griffin DOAttdayana ProviderActiveStart: March 19, 2025 End: March 19, 2025 Goals (unrecognized section and content) Goals may be documented in a n alternate section FOR RECORDS PERTAINING TO PATIENTS WHO ARE OR HAVE BEEN ENROLLED IN A CHEMICAL DEPENDENCY/SUBSTANCEABUSE PROGRAM, SOME INFORMATION MAY BE OMITTED. This clinical summary was aggregated from multiple sources. Caution should be exercised in using it in the provision of clinical care. This summary normalizes information from multiple sources, and as a consequence, information in this document may materially change the coding, format and clinical context of patient data. In addition, data may be omitted in some cases. CLINICAL DECISIONS SHOULD BE BASED ON THE PRIMARY CLINICAL RECORDS. [employer] [facility]. provides no warranty or guarantee of the accuracy or completeness of information in this document.
[2025-03-22 08:01] LABS: Hematocrit 42.8 % (42.0-54.0); Hemoglobin 14.2 g/dL (14.0-18.0); Immature Granulocytes Abs Auto 0.01 10^3/uL (0.00-0.03); Immature Granulocytes Pct Auto 0.2 % (0.0-0.5); Lymphocytes Absolute Auto 1.6 10^3/uL (1.2-3.8); Mean Corpuscular HGB Conc 33.2 g/dL (29.9-35.2); Mean Corpuscular Hemoglobin 30.5 pg (25.9-34.0); Mean Corpuscular Volume 92.0 fL (80.0-94.0); Platelet Count 232 10^3/uL (150-450); Red Blood Count 4.65 10^6/uL (4.70-6.10); White Blood Count 5.2 10^3/uL (4.0-11.0)
[2025-03-22 08:16] LABS: Alanine Aminotransferase 37 U/L (16-63); Albumin Globulin Ratio 1.2; Albumin Level 3.9 g/dL (3.4-5.0); Alkaline Phosphatase 61 U/L (46-116); Anion Gap 10.8; Aspartate Amino Transferase 14 U/L (15-37); Blood Urea Nitrogen 20.0 mg/dL (7.0-18.0); Calcium 8.9 mg/dL (8.5-10.1); Carbon Dioxide 29.3 mmol/L (21.0-32.0); Chloride 106 mmol/L (98-107); Cholesterol 183 mg/dL (<=200); Estimated GFR (African America >60 (>=60 mL/min/1.73m^2); Estimated GFR (Non-African Ame >60 (>=60 mL/min/1.73m^2); Globulin 3.2 g/dL; Glucose 89 mg/dL (74-106); HDL Cholesterol 60 mg/dL (40-60); Potassium 4.1 mmol/L (3.5-5.1); Sodium 142 mmol/L (136-145); Total Protein 7.1 g/dL (6.4-8.2); Triglycerides 120 mg/dL (<=150); VLDL CHOLESTEROL 24.0 mg/dL
== END 2025-03-22 07:24 | disposition home or self-care (01) ==
LOC: LAB 07:25
PROVIDERS: PCP Internal Medicine; Visit Provider Internal Medicine
DX: Z00.00 Encounter for general adult medical examination without abnormal findings (principal); Z12.5 Encounter for screening for malignant neoplasm of prostate
CPT/HCPCS: 36415; 80053; 80061; 85025; G0103